=== PATIENT | female | born 1940 | race African-American/Black ===

== ENCOUNTER 2017-09-11 06:48 | Emergency (ER) | payer MEDICARE, MEDICAID ==
[2017-09-11] MEDS ORDERED: Tetracaine 0.5% OPTH.SOL 4 ML* 1 DROP BTL ONE (07:22)
[2017-09-11] MEDS ORDERED: Fluorescein Sod TOPICAL 0.6* 0.6 MG TEST OPHTHALMIC ONE (07:26)
--- NOTE | 2017-09-11 08:02 | ED ---
Jax Bean Gabriel, scribed for Ivan Phan MD on 09/11/17 at 0729 . Throat Pain/Nasal Congestion - HPI Summary HPI Summary: This patient is a 77 year old F presenting to [facility] accompanied by her son with a chief complaint of left eye pain that began yesterday but is worse this morning. The patient rates the pain 2/10 in severity. Patient reports MORALES and eye watering. Patient denies purulent discharge. The pt states the pain feels scratchy like there is a foreign body in her eye. She has a prosthetic right eye. Hx glaucoma. - History of Current Complaint Chief Complaint: EDEyeProblem Time Seen by Provider: 09/11/17 07:10 Hx Obtained From: Patient Onset/Duration: Lasting Days - 1, Still Present, Worse Since - this morning Severity: Mild Associated Signs And Symptoms: Positive: Negative - purulent discharge - Allergies/Home Medications Allergies/Adverse Reactions: Allergies Allergy/AdvReac Type Severity Reaction Status Date / Time contrast dye Allergy Itching Uncoded 09/11/17 06:54 PMH/Surg Hx/FS Hx/Imm Hx Endocrine/Hematology History: Reports: Hx Diabetes Cardiovascular History: Reports: Hx Hypercholesterolemia, Hx Hypertension Denies: Hx Myocardial Infarction Respiratory History: Reports: Hx Seasonal Allergies Denies: Hx Asthma, Hx Chronic Obstructive Pulmonary Disease (COPD) GI History: Reports: Hx Gastroesophageal Reflux Disease Sensory History: Reports: Hx Eye Prosthesis, Hx Glaucoma Opthamlomology History: Reports: Hx Eye Prosthesis, Hx Glaucoma - Surgical History Surgery Procedure, Year, and Place: right eye removal, Double mastectomy Infectious Disease History: No Infectious Disease History: Denies: Traveled Outside the [place] in Last 30 Days - Family History Known Family History: Positive: Hypertension, Diabetes Negative: Renal Disease, Respiratory Disease, Seizure Disorder - Social History Occupation: Unemployed Lives: Assisted Living Alcohol Use: None Substance Use Type: Reports: None Smoking Status (MU): Unknown if Ever Smoked Review of Systems Positive: Other - eye pain . Negative: Drainage Positive: Headache All Other Systems Reviewed And Are Negative: Yes Physical Exam - Summary Physical Exam Summary: VITAL SIGNS: Reviewed. GENERAL: Patient is an obese female who is seated in her wheelcahir. Patient is not in any acute respiratory distress. HEAD AND FACE: No signs of trauma. No ecchymosis, hematomas or skull depressions. No sinus tenderness. EYES: PERRLA, EOMI , No injected conjunctiva, no nystagmus. Fluorescein stain was negative. There was no foreign body or discharge EARS: Hearing grossly intact. Ear canals and tympanic membranes are within normal limits. MOUTH: Oropharynx within normal limits. NECK: Supple, trachea is midline, no adenopathy, no JVD, no carotid bruit, no c- spine tenderness, neck with full ROM. CHEST: Symmetric, no tenderness at palpation LUNGS: Clear to auscultation bilaterally. No wheezing or crackles. CVS: Regular rate and rhythm, S1 and S2 present, no murmurs or gallops appreciated. ABDOMEN: Soft, non-tender. No signs of distention. No rebound no guarding, and no masses palpated. Bowel sounds are normal. EXTREMITIES: FROM in all major joints, no edema, no cyanosis or clubbing. NEURO: Alert and oriented x 3. No acute neurological deficits. Speech is normal and follows commands. SKIN: Dry and warm Triage Information Reviewed: Yes Vital Signs On Initial Exam: Initial Vitals Temp Pulse Resp BP Pulse Ox 99.3 F 108 20 157/89 95 09/11/17 06:49 09/11/17 06:49 09/11/17 06:49 09/11/17 06:49 09/11/17 06:49 Vital Signs Reviewed: Yes Procedures - Eye Procedure Alcaine Drops Administered: No - tetracaine Eye FB Removal: other - no fb seen Eye Irrigated w/ Saline (ccs): 10 Diagnostics - Vital Signs Vital Signs Temp Pulse Resp BP Pulse Ox 09/11/17 06:49 99.3 F 108 20 157/89 95 - Laboratory Lab Statement: Any lab studies that have been ordered have been reviewed, and results considered in the medical decision making process. Re-Evaluation - Re-Evaluation First Eval Re-Evaluation Time: 07:25 Change: Improved Comment: The pt feels better after eye was irrigated. I discussed all discharge and findings with her. EENT Course/Dx - Course Assessment/Plan: This patient is a 77 year old F presenting to [facility] accompanied by her son with a chief complaint of left eye pain that began yesterday but is worse this morning. The patient rates the pain 2/10 in severity. Patient reports MORALES and eye watering. Patient denies purulent discharge. The pt states the pain feels scratchy like there is a foreign body in her eye. She has a prosthetic right eye. Hx glaucoma. In the ED course the patient was given Ful-Treasure and tetra Yanick. I examined the eye and no foreign body was seen. I answer all questions and concerns to patient and family satisfaction, there are no other complaints at this time. Patient will be discharged and follow up from Dr. Santos. The pt is hemodynamically stable, alert and oriented x3. The patient is agreeable with this plan. - Diagnoses Provider Diagnoses: Eye irritation Discharge - Sign-Out/Discharge Documenting (check all that apply): Discharge - Discharge Plan Condition: Stable Disposition: HOME Patient Education Materials: Blurred Vision (ED), Eye Pain (ED) Referrals: [facility] [Outside] Martin Santos MD [Medical Doctor] - Additional Instructions: Please follow up with an top lift cutter on Tuesday. RETURN TO THE EMERGENCY DEPARTMENT FOR CHANGING OR WORSENING SYMPTOMS. - Billing Disposition and Condition Condition: STABLE Disposition: HOME The documentation as recorded by the Jax bowman Gabriel accurately reflects the service I personally performed and the decisions made by me, Ivan Phan MD.
== END 2017-09-11 07:46 | disposition home or self-care (01) ==
LOC: ED 06:48
DX: H57.8 Other specified disorders of eye and adnexa (principal); H57.12 Ocular pain, left eye; R51 Headache; E11.9 Type 2 diabetes mellitus without complications; E78.00 Pure hypercholesterolemia, unspecified; I10 Essential (primary) hypertension; K21.9 Gastro-esophageal reflux disease without esophagitis; Z97.0 Presence of artificial eye; Z91.041 Radiographic dye allergy status
CPT/HCPCS: 99281; A9270-GY

== ENCOUNTER 2018-02-20 16:52 | Emergency (ER) | payer MEDICAID, MEDICARE ==
--- NOTE | 2018-02-20 17:20 | ED ---
Hypertension - HPI Summary HPI Summary: 78 y/o female BIBA to the ED for high BP (over 200 systolic, per pt). Sent from [facility]. 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 Pt is otherwise asymptomatic at this time. Known PMH of HTN, DM, arthritis, glaucoma letf eye, right eye prosthesis, bladder frequency. BP 176/91, HR 91 in the ED on patient visit. Pt states she just moved here from [place], lives in [facility]. - History of Current Complaint Chief Complaint: EDHypertension Stated Complaint: HIGH BLOOD PRESSURE Time Seen by Provider: 02/20/18 17:14 Hx Obtained From: Patient Onset/Duration: Still Present Aggravating Factor(s): Nothing Alleviating Factor(s): Nothing Associated Signs & Symptoms: Negative - Allergies/Home Medications Allergies/Adverse Reactions: Allergies Allergy/AdvReac Type Severity Reaction Status Date / Time contrast dye Allergy Itching Uncoded 09/11/17 06:54 PMH/Surg Hx/FS Hx/Imm Hx Previously Healthy: No Endocrine/Hematology History: Reports: Hx Diabetes Cardiovascular History: Reports: Hx Hypercholesterolemia, Hx Hypertension Denies: Hx Myocardial Infarction Respiratory History: Reports: Hx Seasonal Allergies Denies: Hx Asthma, Hx Chronic Obstructive Pulmonary Disease (COPD) GI History: Reports: Hx Gastroesophageal Reflux Disease Musculoskeletal History: Denies: Hx Osteoporosis Sensory History: Reports: Hx Eye Prosthesis, Hx Glaucoma Opthamlomology History: Reports: Hx Eye Prosthesis, Hx Glaucoma - Surgical History Surgery Procedure, Year, and Place: right eye removal, Double mastectomy. LT HEEL SPUR. HYSTERECTOMY. KIDNEY STONE REMOVAL Infectious Disease History: No Infectious Disease History: Denies: Traveled Outside the [place] in Last 30 Days - Family History Known Family History: Positive: Hypertension, Diabetes Negative: Renal Disease, Respiratory Disease, Seizure Disorder - Social History Alcohol Use: None Substance Use Type: Reports: None Smoking Status (MU): Unknown if Ever Smoked Review of Systems Negative: Fever, Chills Negative: Drainage Negative: Sore Throat Negative: Chest Pain Negative: Shortness Of Breath, Cough Negative: Abdominal Pain, Vomiting, Nausea Negative: dysuria, hematuria Negative: Myalgia, Edema Negative: Rash Neurological: Other - no dizziness All Other Systems Reviewed And Are Negative: Yes Physical Exam - Summary Physical Exam Summary: Constitutional: Well-developed, Well-nourished, Alert. (-) Distressed Skin: Warm, Dry HENT: Normocephalic; Atraumatic Eyes: Conjunctiva normal Neck: Musculoskeletal ROM normal neck. (-) JVD, (-) Stridor, (-) Tracheal deviation Cardio: Rhythm regular, rate normal, Heart sounds normal; Intact distal pulses; The pedal pulses are 2+ and symmetric. Radial pulses are 2+ and symmetric. (-) Murmur Pulmonary/Chest wall: Effort normal. (-) Respiratory distress, (-) Wheezes, (-) Rales Abd: Soft, (-) epigastric tenderness, (-) Distension, (-) Guarding, (-) Rebound Musculoskeletal: (-) Edema Lymph: (-) Cervical adenopathy Neuro: Alert, Oriented x3 Psych: Mood and affect Normal Triage Information Reviewed: Yes Vital Signs On Initial Exam: Initial Vitals Temp Pulse Resp BP Pulse Ox 97.4 F 91 15 176/91 98 02/20/18 17:04 02/20/18 17:04 02/20/18 17:04 02/20/18 17:04 02/20/18 17:04 Vital Signs Reviewed: Yes Diagnostics - Vital Signs Vital Signs Temp Pulse Resp BP Pulse Ox 02/20/18 17:04 97.4 F 91 15 176/91 98 - Laboratory Lab Statement: Any lab studies that have been ordered have been reviewed, and results considered in the medical decision making process. Hypertension Course/Dx - Course Assessment/Plan: Pt is currently asymptomatic in the ED. Pt has an appointment scheduled with Dr. Wood in 3 days. Pt will be d/c home, asked to keep her appointment. Recommended pt purchase an in-home BP monitor. Informed pt's sons of plan, family agrees. - Diagnoses Provider Diagnoses: Asymptomatic hypertension Discharge - Sign-Out/Discharge Documenting (check all that apply): Patient Departure - Discharge Plan Condition: Stable Disposition: HOME Patient Education Materials: Hypertension (ED) Referrals: Nito Hidalgo MD [Primary Care Provider] - 3 Days (Keep your appointment with Dr. Wood on , 02/23/18) Additional Instructions: RETURN TO THE ED FOR WORSENING SYMPTOMS - Attestation Statements Document Initiated by Scribe: Yes Documenting Scribe: Favio Alarcon Provider For Whom Scribe is Documenting (Include Credential): Stephen Carr MD Scribe Attestation: I, Edward Agnes, scribed for Stephen Carr MD on 02/20/18 at 1814.
[2018-02-20 17:52] VITALS: BP 158/99
== END 2018-02-20 17:49 | disposition home or self-care (01) ==
LOC: ED 16:52
DX: I10 Essential (primary) hypertension (principal)
CPT/HCPCS: 99282

== ENCOUNTER 2021-06-30 14:13 | Inpatient (IN) ==
[2021-06-30 15:21] LABS: ABS Basophils 0.1 10^3/ul (0-0.2); ABS Eosinophils 0.6 10^3/ul (0-0.6); ABS Lymphocytes 0.8 10^3/ul (1.0-4.8); ABS Monocytes 0.7 10^3/ul (0-0.8); ABS Neutrophils 3.9 10^3/ul (1.5-7.7); Eosinophil % 10.5 %; Hematocrit 39 % (35-47); Hemoglobin 12.5 g/dL (12.0-16.0); Mean Corpuscular HGB Conc 32 g/dL (31-36); Mean Corpuscular Hemoglobin 23 pg (27-31); Mean Corpuscular Volume 71 fL (80-97); Mean Platelet Volume 7.3 fL (7.4-10.4); Nucleated Red Blood Cells % 0.1; Platelet Count 226 10^3/uL (150-450); Red Blood Count 5.48 10^6 /uL (3.70-4.87); Red Cell Distribution Width 16 % (10-15)
[2021-06-30 15:31] LABS: Rapid COVID-19 Molecular Detected (Undetected)
[2021-06-30 15:36] LABS: Troponin I 0.02 ng/mL (<0.03)
[2021-06-30 15:38] LABS: Influenza A Molecular Negative (Negative); Influenza B Molecular Negative (Negative)
[2021-06-30 15:49] LABS: Albumin 3.8 g/dL (3.2-5.2); Calcium 9.3 mg/dL (8.6-10.3); Globulin 3.7 g/dL (2-4); Potassium 3.8 mmol/L (3.5-5.0); Total Bilirubin 0.3 mg/dL (0.2-1.0); Total Protein 7.5 g/dL (6.4-8.9); eGFR CKD-EPI 36.8 (>60)
[2021-06-30] MEDS ORDERED: Dexamethasone IV 4 MG/ML VIAL 1 ml VIAL IV SLOW PU ONE (16:28)
[2021-06-30] MEDS ORDERED: Dextrose 50% Syringe 50 ml 25 GM/50 ML SYRINGE IV PUSH PRN (19:42)
[2021-06-30] MEDS ORDERED: Remdesivir 100 mg Vial 200 MG in NS 0.9% 250 ml 210 ML IV ONE (19:43)
[2021-06-30] MEDS: Enoxaparin 40 MG/0.4 ML SYR SUBCUT SCH (22:20)
[2021-07-01] MEDS: CMCS: Ranolazine 500 mg TAB ER (NF) PO SCH ×3 (00:16→20:45)
[2021-07-01] MEDS ORDERED: Diclofenac Sod EC 25 mg TAB PO PRN (01:04)
[2021-07-01 06:45] LABS: INR 1.12 (0.86-1.15)
[2021-07-01 06:59] LABS: Albumin 3.8 g/dL (3.2-5.2); Albumin/Globulin Ratio 0.9 (1-3); Calcium 9.4 mg/dL (8.6-10.3); Globulin 4.1 g/dL (2-4); Potassium 4.1 mmol/L (3.5-5.0); Total Bilirubin 0.3 mg/dL (0.2-1.0); Total Protein 7.9 g/dL (6.4-8.9); eGFR CKD-EPI 46.4 (>60)
[2021-07-01 07:00] LABS: Troponin I 0.01 ng/mL (<0.03)
[2021-07-01] MEDS: CMCS: Dorzolamide/Timolol OPTH (NF) 10 ML BOT LEFT EYE SCH ×2 (08:54→20:46)
[2021-07-01] MEDS: Aspirin EC 81 mg TAB.EC (enteric coated) PO SCH (08:56)
[2021-07-01] MEDS: LOTEPREDNOL 0.5% LEFT EYE SCH ×4 (08:58→21:00)
[2021-07-01] MEDS: BRIMONIDINE P 0.1% LEFT EYE SCH ×3 (08:58→20:46)
[2021-07-01] MEDS ORDERED: Lisinopril/HCTZ 20/12.5 TB(NF) PO SCH (09:00)
[2021-07-01] MEDS: Enoxaparin 40 MG/0.4 ML SYR SUBCUT SCH (20:45)
[2021-07-01] MEDS ORDERED: Remdesivir 100 mg Vial 100 MG in NS 0.9% 250 ml 230 ML IV SCH (21:00)
[2021-07-01] MEDS ORDERED: Latanoprost 0.005% 2.5 ml BTL LEFT EYE SCH (21:00)
[2021-07-02 07:26] LABS: INR 1.12 (0.86-1.15)
[2021-07-02 07:31] LABS: Albumin 3.6 g/dL (3.2-5.2); Albumin/Globulin Ratio 0.9 (1-3); Calcium 9.3 mg/dL (8.6-10.3); Globulin 3.9 g/dL (2-4); Potassium 4.1 mmol/L (3.5-5.0); Total Bilirubin 0.3 mg/dL (0.2-1.0); Total Protein 7.5 g/dL (6.4-8.9); eGFR CKD-EPI 51.6 (>60)
[2021-07-02 07:48] LABS: ABS Lymphocytes 0.6 10^3/ul (1.0-4.8); ABS Monocytes 0.2 10^3/ul (0-0.8); ABS Neutrophils 5.5 10^3/ul (1.5-7.7); Hematocrit 37 % (35-47); Hemoglobin 11.9 g/dL (12.0-16.0); Lymphocyte % 8.8 %; Mean Corpuscular HGB Conc 32 g/dL (31-36); Mean Corpuscular Hemoglobin 23 pg (27-31); Mean Corpuscular Volume 71 fL (80-97); Mean Platelet Volume 7.9 fL (7.4-10.4); Nucleated Red Blood Cells % 0.1; Platelet Count 250 10^3/uL (150-450); Red Blood Count 5.22 10^6 /uL (3.70-4.87); Red Cell Distribution Width 16 % (10-15); White Blood Count 6.3 10^3/uL (3.5-10.8)
[2021-07-02] MEDS: LOTEPREDNOL 0.5% LEFT EYE SCH ×2 (08:20→14:48)
[2021-07-02] MEDS: BRIMONIDINE P 0.1% LEFT EYE SCH ×2 (08:20→14:49)
[2021-07-02] MEDS: CMCS: Ranolazine 500 mg TAB ER (NF) PO SCH (08:39)
[2021-07-02] MEDS: Aspirin EC 81 mg TAB.EC (enteric coated) PO SCH (08:39)
[2021-07-02] MEDS: CMCS: Dorzolamide/Timolol OPTH (NF) 10 ML BOT LEFT EYE SCH (08:40)
[2021-07-02 11:56] VITALS: BP 107/41
== END 2021-07-02 18:10 | disposition home or self-care (01) | DRG 178 ==
LOC: ED 14:13 → EDHOLD 19:20 → MED 07-01 00:49
PROVIDERS: ADMIT Family Medicine; ATTEND Family Medicine

== ENCOUNTER 2022-01-04 13:58 | Inpatient (IN) ==
[2022-01-04 15:48] LABS: ABS Eosinophils 0.1 10^3/ul (0-0.6); ABS Lymphocytes 0.6 10^3/ul (1.0-4.8); ABS Monocytes 0.8 10^3/ul (0-0.8); ABS Neutrophils 8.7 10^3/ul (1.5-7.7); Eosinophil % 0.5 %; Hematocrit 28 % (35-47); Hemoglobin 8.7 g/dL (12.0-16.0); Lymphocyte % 6.3 %; Mean Corpuscular HGB Conc 31 g/dL (31-36); Mean Corpuscular Hemoglobin 21 pg (27-31); Mean Corpuscular Volume 69 fL (80-97); Mean Platelet Volume 8.5 fL (7.4-10.4); Nucleated Red Blood Cells % 0.3; Platelet Count 316 10^3/uL (150-450); Red Blood Count 4.12 10^6 /uL (3.70-4.87); Red Cell Distribution Width 18 % (10-15); White Blood Count 10.2 10^3/uL (3.5-10.8)
[2022-01-04 16:37] LABS: Anion Gap 13 mmol/L (2-11); Blood Urea Nitrogen 80 mg/dL (6-24); CO2 Carbon Dioxide 23 mmol/L (22-32); Calcium 8.9 mg/dL (8.6-10.3); Chloride 96 mmol/L (101-111); Glucose 162 mg/dL (70-100); Sodium 132 mmol/L (135-145); Total Protein 6.6 g/dL (6.4-8.9); eGFR CKD-EPI 9.3 (>60)
[2022-01-04 16:38] LABS: ALT 12 U/L (7-52); Albumin 2.8 g/dL (3.2-5.2); Albumin/Globulin Ratio 0.7 (1-3); Alkaline Phosphatase 53 U/L (35-149); Globulin 3.8 g/dL (2-4)
[2022-01-04] MEDS ORDERED: Lactated Ringers 1000 ml BAG 1,000 ML IV ONE (17:20)
[2022-01-04 18:22] LABS: Potassium Redraw 4.3 mmol/L (3.5-5.0)
[2022-01-04] MEDS ORDERED: Lactated Ringers 500 ml BAG 500 ML IV ONE (20:59)
[2022-01-04] MEDS ORDERED: Lactated Ringers 1000 ml BAG 1,000 ML IV SCH (22:25)
[2022-01-04 22:29] LABS: C Reactive Protein 187.98 mg/L (<8.01)
[2022-01-04 22:50] LABS: Urine Appearance Slightly Cloudy; Urine Color Amber; Urine Ketones Trace (Negative); Urine Urobilinogen 1.0 (Negative) (Negative)
[2022-01-04 22:51] LABS: Urine Bilirubin 1+ (Small) (Negative); Urine Blood 3+ (Large) (Negative); Urine Glucose Negative (Negative); Urine Nitrite Negative (Negative); Urine Protein 1+ (30 mg/dL) (Negative)
[2022-01-04 22:58] LABS: Urine Bacteria Absent (Absent); Urine Chloride Concentration < 22 mmol/L; Urine Potassium Concentration 68.9 mmol/L; Urine Red Blood Cell 3+(>10/hpf) (Absent); Urine Sodium Concentration 20 mmol/L; Urine Squamous Epithelial Cell Present (Absent); Urine White Blood Cell 2+(11-20/hpf) (Absent)
[2022-01-04] MEDS: CMCS:Dorzolamide/Timolol OPTH (NF) 10 ML BOT LEFT EYE SCH (23:17)
[2022-01-04] MEDS: LOTEPREDNOL ETABONATE 0.5% LEFT EYE SCH (23:27)
[2022-01-05] MEDS ORDERED: Acetaminophen IV 1 GM/100ML 100 ML IV PRN (01:38)
[2022-01-05 04:43] LABS: ABS Eosinophils 0.3 10^3/ul (0-0.6); ABS Lymphocytes 0.6 10^3/ul (1.0-4.8); ABS Monocytes 0.8 10^3/ul (0-0.8); ABS Neutrophils 5.7 10^3/ul (1.5-7.7); Eosinophil % 3.6 %; Hematocrit 25 % (35-47); Hemoglobin 7.9 g/dL (12.0-16.0); Lymphocyte % 7.5 %; Mean Corpuscular HGB Conc 32 g/dL (31-36); Mean Corpuscular Hemoglobin 22 pg (27-31); Mean Corpuscular Volume 69 fL (80-97); Mean Platelet Volume 7.6 fL (7.4-10.4); Nucleated Red Blood Cells % 0.4; Platelet Count 263 10^3/uL (150-450); Red Blood Count 3.67 10^6 /uL (3.70-4.87); Red Cell Distribution Width 18 % (10-15); White Blood Count 7.4 10^3/uL (3.5-10.8)
[2022-01-05 04:57] LABS: Albumin 2.6 g/dL (3.2-5.2); Albumin/Globulin Ratio 0.8 (1-3); Calcium 8.5 mg/dL (8.6-10.3); Globulin 3.4 g/dL (2-4); Magnesium 1.8 mg/dL (1.9-2.7); Potassium 4.3 mmol/L (3.5-5.0); Total Bilirubin 0.4 mg/dL (0.2-1.0)
[2022-01-05] MEDS ORDERED: Magnesium Sulfate IV 1GM/100ML 1 GM/100 ML BAG IV ONE (05:50)
[2022-01-05] MEDS: Aspirin EC 81 mg TAB.EC (enteric coated) PO SCH (07:47)
[2022-01-05] MEDS: LOTEPREDNOL ETABONATE 0.5% LEFT EYE SCH ×4 (07:48→21:36)
[2022-01-05] MEDS: Metoprolol Succinate XL 200 mg TAB PO SCH (07:48)
[2022-01-05] MEDS: CMCS:Dorzolamide/Timolol OPTH (NF) 10 ML BOT LEFT EYE SCH ×2 (08:54→21:35)
[2022-01-05] MEDS: Nystatin TOP POWDER 15 GM BTL TOPICAL SCH ×3 (08:55→21:36)
[2022-01-05] MEDS ORDERED: Simvastatin 10 mg TAB (NF) PO SCH (09:00)
[2022-01-05] MEDS ORDERED: Sodium Phosphate ADULT ENEMA 133 ML BTL PR SCH (09:00)
[2022-01-05] MEDS: Lactated Ringers 1000 ml BAG 1,000 ML IV SCH ×2 (10:56→19:50)
[2022-01-05] MEDS: Latanoprost 0.005% 2.5 ml BTL LEFT EYE SCH ×2 (21:47→21:48)
[2022-01-06] MEDS: Lactated Ringers 1000 ml BAG 1,000 ML IV SCH (02:46)
[2022-01-06 06:41] LABS: Hematocrit 24 % (35-47); Hemoglobin 7.6 g/dL (12.0-16.0); Mean Corpuscular HGB Conc 32 g/dL (31-36); Mean Corpuscular Hemoglobin 22 pg (27-31); Mean Corpuscular Volume 68 fL (80-97); Mean Platelet Volume 7.5 fL (7.4-10.4); Nucleated Red Blood Cells % 0.5; Platelet Count 286 10^3/uL (150-450); Red Blood Count 3.46 10^6 /uL (3.70-4.87); Red Cell Distribution Width 18 % (10-15); White Blood Count 6.1 10^3/uL (3.5-10.8)
[2022-01-06 06:47] LABS: ABS Eosinophils 0.2 10^3/ul (0-0.6); ABS Lymphocytes 0.5 10^3/ul (1.0-4.8); ABS Monocytes 0.3 10^3/ul (0-0.8); ABS Neutrophils 2.9 10^3/ul (1.5-7.7); Eosinophil % 4.8 %; Lymphocyte % 12.2 %
[2022-01-06 07:04] LABS: Albumin 2.5 g/dL (3.2-5.2); Albumin/Globulin Ratio 0.8 (1-3); Calcium 8.7 mg/dL (8.6-10.3); Globulin 3.2 g/dL (2-4); Magnesium 1.9 mg/dL (1.9-2.7); Potassium 3.8 mmol/L (3.5-5.0); TSH Ultra Thyroid Stim Horm 0.83 mcIU/mL (0.34-5.60); Total Bilirubin 0.3 mg/dL (0.2-1.0); Total Protein 5.7 g/dL (6.4-8.9); eGFR CKD-EPI 19.4 (>60)
[2022-01-06] MEDS: Aspirin EC 81 mg TAB.EC (enteric coated) PO SCH (08:48)
[2022-01-06] MEDS: Metoprolol Succinate XL 200 mg TAB PO SCH (08:48)
[2022-01-06] MEDS: Nystatin TOP POWDER 15 GM BTL TOPICAL SCH ×3 (08:48→21:14)
[2022-01-06] MEDS: CMCS:Dorzolamide/Timolol OPTH (NF) 10 ML BOT LEFT EYE SCH ×2 (08:49→21:08)
[2022-01-06] MEDS: LOTEPREDNOL ETABONATE 0.5% LEFT EYE SCH ×4 (08:49→21:14)
[2022-01-06] MEDS ORDERED: Cyanocobalamin INJ 1,000 MCG/ML VIAL 1 ML VIAL IM ONE (18:49)
[2022-01-06] MEDS: Latanoprost 0.005% 2.5 ml BTL LEFT EYE SCH (21:09)
[2022-01-07 05:47] LABS: ABS Eosinophils 0.2 10^3/ul (0-0.6); ABS Lymphocytes 0.5 10^3/ul (1.0-4.8); ABS Monocytes 0.6 10^3/ul (0-0.8); ABS Neutrophils 3.6 10^3/ul (1.5-7.7); Eosinophil % 3.9 %; Hematocrit 24 % (35-47); Hemoglobin 7.7 g/dL (12.0-16.0); Lymphocyte % 10.4 %; Mean Corpuscular HGB Conc 32 g/dL (31-36); Mean Corpuscular Hemoglobin 22 pg (27-31); Mean Corpuscular Volume 69 fL (80-97); Mean Platelet Volume 7.5 fL (7.4-10.4); Nucleated Red Blood Cells % 0.2; Platelet Count 292 10^3/uL (150-450); Red Blood Count 3.55 10^6 /uL (3.70-4.87); Red Cell Distribution Width 19 % (10-15)
[2022-01-07 06:08] LABS: Magnesium 1.8 mg/dL (1.9-2.7); Potassium 3.8 mmol/L (3.5-5.0)
[2022-01-07 06:14] LABS: eGFR CKD-EPI 36.3 (>60)
[2022-01-07] MEDS ORDERED: Magnesium Sulfate IV 1GM/100ML 1 GM/100 ML BAG IV ONE (06:38)
[2022-01-07] MEDS ORDERED: Dextrose 50% Syringe 50 ml 25 GM/50 ML SYRINGE IV PUSH PRN (09:20)
[2022-01-07] MEDS: Aspirin EC 81 mg TAB.EC (enteric coated) PO SCH (10:12)
[2022-01-07] MEDS: Metoprolol Succinate XL 200 mg TAB PO SCH (10:13)
[2022-01-07] MEDS: Nystatin TOP POWDER 15 GM BTL TOPICAL SCH ×2 (10:15→17:31)
[2022-01-07] MEDS: CMCS:Dorzolamide/Timolol OPTH (NF) 10 ML BOT LEFT EYE SCH ×2 (12:22→21:52)
[2022-01-07] MEDS: LOTEPREDNOL ETABONATE 0.5% LEFT EYE SCH ×3 (12:23→21:51)
[2022-01-07 13:15] LABS: C Reactive Protein 179.56 mg/L (<8.01)
[2022-01-07] MEDS: D5W 1/2 NS 1000 ml BAG 1,000 ML IV SCH (18:26)
[2022-01-07] MEDS: Latanoprost 0.005% 2.5 ml BTL LEFT EYE SCH (21:53)
[2022-01-08] MEDS: D5W 1/2 NS 1000 ml BAG 1,000 ML IV SCH ×2 (04:55→15:31)
[2022-01-08 06:13] LABS: Hematocrit 27 % (35-47); Hemoglobin 8.5 g/dL (12.0-16.0); Mean Corpuscular HGB Conc 31 g/dL (31-36); Mean Corpuscular Hemoglobin 22 pg (27-31); Mean Corpuscular Volume 70 fL (80-97); Mean Platelet Volume 8.5 fL (7.4-10.4); Platelet Count 272 10^3/uL (150-450); Red Blood Count 3.87 10^6 /uL (3.70-4.87); Red Cell Distribution Width 20 % (10-15); White Blood Count 4.2 10^3/uL (3.5-10.8)
[2022-01-08 06:51] LABS: Calcium 9.1 mg/dL (8.6-10.3); Magnesium 1.8 mg/dL (1.9-2.7); Potassium 3.6 mmol/L (3.5-5.0); eGFR CKD-EPI 58.3 (>60)
[2022-01-08] MEDS ORDERED: Magnesium Sulfate 2 gm BAG 2 GM/50 ML BAG IVPB ONE (07:04)
[2022-01-08] MEDS: Nystatin TOP POWDER 15 GM BTL TOPICAL SCH (08:08)
[2022-01-08] MEDS: LOTEPREDNOL ETABONATE 0.5% LEFT EYE SCH (08:08)
[2022-01-08] MEDS: Metoprolol Succinate XL 200 mg TAB PO SCH (08:52)
[2022-01-08] MEDS: Aspirin EC 81 mg TAB.EC (enteric coated) PO SCH (08:52)
[2022-01-08] MEDS: CMCS:Dorzolamide/Timolol OPTH (NF) 10 ML BOT LEFT EYE SCH ×2 (08:53→20:32)
[2022-01-08] MEDS ORDERED: methylPREDNISolone SOD SUCC 40 mg/ml 1 ml VIAL IV SCH (15:00)
[2022-01-08] MEDS: Latanoprost 0.005% 2.5 ml BTL LEFT EYE SCH (20:32)
[2022-01-08] MEDS ORDERED: methylPREDNISolone SOD SUCC 40 mg/ml 1 ml VIAL IV ONE (21:00)
[2022-01-09] MEDS: D5W 1/2 NS 1000 ml BAG 1,000 ML IV SCH ×2 (01:07→12:07)
[2022-01-09 06:47] LABS: Hematocrit 30 % (35-47); Hemoglobin 9.5 g/dL (12.0-16.0); Mean Corpuscular HGB Conc 32 g/dL (31-36); Mean Corpuscular Hemoglobin 22 pg (27-31); Mean Corpuscular Volume 70 fL (80-97); Mean Platelet Volume 8.6 fL (7.4-10.4); Platelet Count 316 10^3/uL (150-450); Red Cell Distribution Width 20 % (10-15); White Blood Count 5.5 10^3/uL (3.5-10.8)
[2022-01-09 06:56] LABS: Calcium 9.2 mg/dL (8.6-10.3); Magnesium 1.8 mg/dL (1.9-2.7); eGFR CKD-EPI 68.4 (>60)
[2022-01-09] MEDS ORDERED: Magnesium Sulfate IV 1GM/100ML 1 GM/100 ML BAG IV ONE (07:30)
[2022-01-09 07:38] LABS: ABS Lymphocytes 0.4 10^3/ul (1.0-4.8); Lymphocyte % 7.6 %; Nucleated Red Blood Cells % 0.3
[2022-01-09] MEDS: Aspirin EC 81 mg TAB.EC (enteric coated) PO SCH (07:57)
[2022-01-09] MEDS: Metoprolol Succinate XL 200 mg TAB PO SCH (07:58)
[2022-01-09] MEDS: CMCS:Dorzolamide/Timolol OPTH (NF) 10 ML BOT LEFT EYE SCH ×2 (07:58→19:50)
[2022-01-09] MEDS ORDERED: methylPREDNISolone SOD SUCC 40 mg/ml 1 ml VIAL IV ONE (08:00)
[2022-01-09] MEDS ORDERED: methylPREDNISolone SOD SUCC 40 mg/ml 1 ml VIAL IV SCH (09:00)
[2022-01-09] MEDS ORDERED: Iodixanol (CONTRAST) 320 MG/ML 100 ML SDV IV ONE (09:21)
[2022-01-09 12:38] LABS: Albumin 2.9 g/dL (3.2-5.2); Albumin/Globulin Ratio 0.8 (1-3); Globulin 3.7 g/dL (2-4); Total Bilirubin 0.3 mg/dL (0.2-1.0); Total Protein 6.6 g/dL (6.4-8.9)
[2022-01-09] MEDS ORDERED: Piperacillin/Tazobac ADVAN 3.375 GM in NS 0.9% 100 ml BAG 100 ML IV ONE (14:29)
[2022-01-09] MEDS ORDERED: Zosyn per Pharmacy NOTE FOLLOW UP SCH (15:00)
[2022-01-09] MEDS: ZOSYN 3.375 GM Q8H per EXTENDED INFUSION IV SCH (19:47)
[2022-01-09] MEDS: Latanoprost 0.005% 2.5 ml BTL LEFT EYE SCH (19:50)
[2022-01-10] MEDS: D5W 1/2 NS 1000 ml BAG 1,000 ML IV SCH ×2 (00:52→11:56)
[2022-01-10] MEDS: ZOSYN 3.375 GM Q8H per EXTENDED INFUSION IV SCH ×3 (04:03→21:51)
[2022-01-10 07:07] LABS: Albumin 2.7 g/dL (3.2-5.2); CO2 Carbon Dioxide 18 mmol/L (22-32); Calcium 8.8 mg/dL (8.6-10.3); Chloride 106 mmol/L (101-111); Magnesium 1.8 mg/dL (1.9-2.7); Sodium 136 mmol/L (135-145)
[2022-01-10 07:08] LABS: ABS Lymphocytes 0.5 10^3/ul (1.0-4.8); ABS Monocytes 0.5 10^3/ul (0-0.8); ABS Neutrophils 7.6 10^3/ul (1.5-7.7); ABS Nucleated RBC 0.1 10^3/ul; Hematocrit 32 % (35-47); Hemoglobin 9.8 g/dL (12.0-16.0); Lymphocyte % 5.7 %; Mean Corpuscular HGB Conc 31 g/dL (31-36); Mean Corpuscular Hemoglobin 22 pg (27-31); Mean Corpuscular Volume 72 fL (80-97); Mean Platelet Volume 8.3 fL (7.4-10.4); Nucleated Red Blood Cells % 0.5; Platelet Count 262 10^3/uL (150-450); Red Blood Count 4.47 10^6 /uL (3.70-4.87); Red Cell Distribution Width 20 % (10-15); White Blood Count 8.6 10^3/uL (3.5-10.8)
[2022-01-10 07:09] LABS: Anion Gap 12 mmol/L (2-11)
[2022-01-10 07:13] LABS: ALT 12 U/L (7-52); Albumin/Globulin Ratio 0.8 (1-3); Alkaline Phosphatase 52 U/L (35-149); Blood Urea Nitrogen 15 mg/dL (6-24); Globulin 3.5 g/dL (2-4); Glucose 201 mg/dL (70-100); Total Protein 6.2 g/dL (6.4-8.9); eGFR CKD-EPI 58.3 (>60)
[2022-01-10] MEDS ORDERED: Magnesium Sulfate 2 gm BAG 2 GM/50 ML BAG IVPB ONE (08:09)
[2022-01-10 08:12] LABS: Hypochromasia 2+
[2022-01-10 08:13] LABS: Microcytosis 2+; Polychromasia 1+; Target Cells 2+
[2022-01-10] MEDS: Aspirin EC 81 mg TAB.EC (enteric coated) PO SCH (08:50)
[2022-01-10] MEDS: Metoprolol Succinate XL 200 mg TAB PO SCH (08:50)
[2022-01-10] MEDS: CMCS:Dorzolamide/Timolol OPTH (NF) 10 ML BOT LEFT EYE SCH ×2 (08:50→23:02)
[2022-01-10 09:12] LABS: Potassium Redraw 3.7 mmol/L (3.5-5.0)
[2022-01-10] MEDS: Latanoprost 0.005% 2.5 ml BTL LEFT EYE SCH (23:02)
[2022-01-11] MEDS: ZOSYN 3.375 GM Q8H per EXTENDED INFUSION IV SCH ×3 (03:54→20:56)
[2022-01-11 05:29] LABS: Venous Bicarbonate HCO3 28.7 mmol/L (24-28)
[2022-01-11 05:49] LABS: INR 1.41 (0.89-1.11)
[2022-01-11 06:00] LABS: Calcium 8.5 mg/dL (8.6-10.3); Magnesium 1.9 mg/dL (1.9-2.7); Potassium 3.6 mmol/L (3.5-5.0); eGFR CKD-EPI 65.6 (>60)
[2022-01-11 06:03] LABS: Hematocrit 31 % (35-47); Hemoglobin 9.4 g/dL (12.0-16.0); Mean Corpuscular HGB Conc 31 g/dL (31-36); Mean Corpuscular Hemoglobin 22 pg (27-31); Mean Corpuscular Volume 70 fL (80-97); Mean Platelet Volume 7.2 fL (7.4-10.4); Platelet Count 292 10^3/uL (150-450); Red Blood Count 4.35 10^6 /uL (3.70-4.87); Red Cell Distribution Width 20 % (10-15); White Blood Count 8.8 10^3/uL (3.5-10.8)
[2022-01-11 06:24] LABS: ABS Basophils 0.1 10^3/ul (0-0.2); ABS Eosinophils 0.1 10^3/ul (0-0.6); ABS Lymphocytes 1.2 10^3/ul (1.0-4.8); ABS Monocytes 0.6 10^3/ul (0-0.8); ABS Neutrophils 6.9 10^3/ul (1.5-7.7); ABS Nucleated RBC 0.1 10^3/ul; Lymphocyte % 13.3 %; Nucleated Red Blood Cells % 0.8
[2022-01-11] MEDS: Aspirin EC 81 mg TAB.EC (enteric coated) PO SCH (08:10)
[2022-01-11] MEDS: CMCS:Dorzolamide/Timolol OPTH (NF) 10 ML BOT LEFT EYE SCH ×2 (08:10→20:56)
[2022-01-11] MEDS: Metoprolol Succinate XL 200 mg TAB PO SCH (08:11)
[2022-01-11] MEDS ORDERED: Zinc Oxide 16% PASTE (Butt Paste) 30 gm TUBE TOPICAL PRN (10:49)
[2022-01-11] MEDS ORDERED: fentaNYL 100 mcg/2 ml 50 MCG/ML VIAL ONE (16:18)
[2022-01-11] MEDS: Latanoprost 0.005% 2.5 ml BTL LEFT EYE SCH (21:30)
[2022-01-12] MEDS: ZOSYN 3.375 GM Q8H per EXTENDED INFUSION IV SCH ×3 (05:05→20:17)
[2022-01-12 05:25] LABS: Hematocrit 32 % (35-47); Hemoglobin 10.1 g/dL (12.0-16.0); Mean Corpuscular HGB Conc 32 g/dL (31-36); Mean Corpuscular Hemoglobin 23 pg (27-31); Mean Corpuscular Volume 71 fL (80-97); Platelet Count 249 10^3/uL (150-450); Red Blood Count 4.48 10^6 /uL (3.70-4.87); Red Cell Distribution Width 20 % (10-15); White Blood Count 8.5 10^3/uL (3.5-10.8)
[2022-01-12 05:43] LABS: Albumin 2.6 g/dL (3.2-5.2); Albumin/Globulin Ratio 0.9 (1-3); Calcium 8.4 mg/dL (8.6-10.3); Potassium 3.2 mmol/L (3.5-5.0); Total Bilirubin 0.5 mg/dL (0.2-1.0); Total Protein 5.6 g/dL (6.4-8.9); eGFR CKD-EPI 71.4 (>60)
[2022-01-12 05:50] LABS: ABS Eosinophils 0.1 10^3/ul (0-0.6); ABS Lymphocytes 0.5 10^3/ul (1.0-4.8); ABS Monocytes 0.6 10^3/ul (0-0.8); ABS Neutrophils 7.3 10^3/ul (1.5-7.7); Eosinophil % 1.7 %; Lymphocyte % 5.5 %; Nucleated Red Blood Cells % 0.4
[2022-01-12] MEDS ORDERED: Potassium Chlor 20 meq TAB.ER PO ONE ×3 (07:12→14:00)
[2022-01-12] MEDS: Metoprolol Succinate XL 200 mg TAB PO SCH (11:13)
[2022-01-12] MEDS: Aspirin EC 81 mg TAB.EC (enteric coated) PO SCH (11:15)
[2022-01-12] MEDS: CMCS:Dorzolamide/Timolol OPTH (NF) 10 ML BOT LEFT EYE SCH ×2 (11:16→20:20)
[2022-01-12 13:05] LABS: Rapid COVID-19 Molecular Undetected (Undetected)
[2022-01-12] MEDS: Latanoprost 0.005% 2.5 ml BTL LEFT EYE SCH (20:21)
[2022-01-13] MEDS: ZOSYN 3.375 GM Q8H per EXTENDED INFUSION IV SCH ×3 (04:08→19:33)
[2022-01-13 06:47] LABS: ABS Eosinophils 0.2 10^3/ul (0-0.6); ABS Lymphocytes 0.7 10^3/ul (1.0-4.8); ABS Monocytes 0.6 10^3/ul (0-0.8); ABS Neutrophils 6.3 10^3/ul (1.5-7.7); Eosinophil % 2.5 %; Hematocrit 30 % (35-47); Hemoglobin 9.9 g/dL (12.0-16.0); Lymphocyte % 9.4 %; Mean Corpuscular HGB Conc 33 g/dL (31-36); Mean Corpuscular Hemoglobin 23 pg (27-31); Mean Corpuscular Volume 71 fL (80-97); Mean Platelet Volume 8.3 fL (7.4-10.4); Nucleated Red Blood Cells % 0.4; Platelet Count 227 10^3/uL (150-450); Red Blood Count 4.29 10^6 /uL (3.70-4.87); Red Cell Distribution Width 20 % (10-15); White Blood Count 7.8 10^3/uL (3.5-10.8)
[2022-01-13 07:02] LABS: Albumin 2.6 g/dL (3.2-5.2); Albumin/Globulin Ratio 0.9 (1-3); Calcium 8.4 mg/dL (8.6-10.3); Globulin 2.9 g/dL (2-4); Potassium 3.6 mmol/L (3.5-5.0); Total Bilirubin 0.4 mg/dL (0.2-1.0); Total Protein 5.5 g/dL (6.4-8.9); eGFR CKD-EPI 74.6 (>60)
[2022-01-13] MEDS: Metoprolol Succinate XL 200 mg TAB PO SCH (08:18)
[2022-01-13] MEDS: Aspirin EC 81 mg TAB.EC (enteric coated) PO SCH (08:19)
[2022-01-13] MEDS: CMCS:Dorzolamide/Timolol OPTH (NF) 10 ML BOT LEFT EYE SCH ×2 (08:21→19:54)
[2022-01-13] MEDS: Latanoprost 0.005% 2.5 ml BTL LEFT EYE SCH (19:55)
[2022-01-14] MEDS: ZOSYN 3.375 GM Q8H per EXTENDED INFUSION IV SCH ×3 (03:06→21:22)
[2022-01-14 05:54] LABS: ABS Basophils 0.1 10^3/ul (0-0.2); ABS Eosinophils 0.4 10^3/ul (0-0.6); ABS Lymphocytes 0.6 10^3/ul (1.0-4.8); ABS Monocytes 0.6 10^3/ul (0-0.8); ABS Neutrophils 6.6 10^3/ul (1.5-7.7); Eosinophil % 4.7 %; Hematocrit 29 % (35-47); Hemoglobin 9.5 g/dL (12.0-16.0); Lymphocyte % 7.7 %; Mean Corpuscular HGB Conc 32 g/dL (31-36); Mean Corpuscular Hemoglobin 23 pg (27-31); Mean Corpuscular Volume 71 fL (80-97); Mean Platelet Volume 8.4 fL (7.4-10.4); Nucleated Red Blood Cells % 0.5; Platelet Count 215 10^3/uL (150-450); Red Blood Count 4.15 10^6 /uL (3.70-4.87); Red Cell Distribution Width 20 % (10-15); White Blood Count 8.2 10^3/uL (3.5-10.8)
[2022-01-14 06:25] LABS: Albumin 2.6 g/dL (3.2-5.2); Albumin/Globulin Ratio 0.9 (1-3); Calcium 8.3 mg/dL (8.6-10.3); Potassium 3.8 mmol/L (3.5-5.0); Total Bilirubin 0.4 mg/dL (0.2-1.0); Total Protein 5.6 g/dL (6.4-8.9); eGFR CKD-EPI 74.6 (>60)
[2022-01-14] MEDS: Metoprolol Succinate XL 200 mg TAB PO SCH (08:58)
[2022-01-14] MEDS: Aspirin EC 81 mg TAB.EC (enteric coated) PO SCH (08:59)
[2022-01-14] MEDS: CMCS:Dorzolamide/Timolol OPTH (NF) 10 ML BOT LEFT EYE SCH ×2 (09:00→21:28)
[2022-01-14] MEDS ORDERED: Lisinopril/HCTZ 20/12.5 TB(NF) PO SCH (09:00)
[2022-01-14] MEDS: Latanoprost 0.005% 2.5 ml BTL LEFT EYE SCH (21:29)
[2022-01-15] MEDS ORDERED: hydrALAZINE 20 mg/ml 1 ML Vial IV IV SLOW PU ONE (02:41)
[2022-01-15] MEDS: ZOSYN 3.375 GM Q8H per EXTENDED INFUSION IV SCH (03:41)
[2022-01-15 06:17] LABS: Hematocrit 32 % (35-47); Hemoglobin 9.7 g/dL (12.0-16.0); Mean Corpuscular HGB Conc 31 g/dL (31-36); Mean Corpuscular Hemoglobin 22 pg (27-31); Mean Corpuscular Volume 70 fL (80-97); Mean Platelet Volume 8.5 fL (7.4-10.4); Nucleated Red Blood Cells % 0.3; Platelet Count 235 10^3/uL (150-450); Red Blood Count 4.52 10^6 /uL (3.70-4.87); Red Cell Distribution Width 21 % (10-15); White Blood Count 7.8 10^3/uL (3.5-10.8)
[2022-01-15 06:24] LABS: Albumin 2.8 g/dL (3.2-5.2); Albumin/Globulin Ratio 0.9 (1-3); Calcium 8.8 mg/dL (8.6-10.3); Globulin 3.1 g/dL (2-4); Potassium 3.6 mmol/L (3.5-5.0); Total Bilirubin 0.4 mg/dL (0.2-1.0); Total Protein 5.9 g/dL (6.4-8.9)
[2022-01-15] MEDS: Metoprolol Succinate XL 200 mg TAB PO SCH (07:50)
[2022-01-15] MEDS: Aspirin EC 81 mg TAB.EC (enteric coated) PO SCH (07:52)
[2022-01-15] MEDS: CMCS:Dorzolamide/Timolol OPTH (NF) 10 ML BOT LEFT EYE SCH (07:52)
[2022-01-15 08:52] LABS: Hypochromasia 2+; Microcytosis 1+; Target Cells 2+
[2022-01-15 08:53] LABS: ABS Lymphocytes 0.8 10^3/ul (1.0-4.8); ABS Neutrophils 6.4 10^3/ul (1.5-7.7)
[2022-01-15 08:54] LABS: ABS Eosinophils 0.1 10^3/ul (0-0.6)
[2022-01-15 08:56] VITALS: BP 194/93
[2022-01-15 13:42] LABS: Rapid COVID-19 Molecular Undetected (Undetected)
[2022-01-22 12:09] LABS: Anaplasma phagocytophilum Negative (Negative); B. miyamotoi PCR, B Negative (Negative); Babesia divergens/MO-1 Negative (Negative); Babesia ducani Negative (Negative); Ehrlichia chaffeensis Negative (Negative); Ehrlichia ewingii/canis Negative (Negative); Ehrlichia muris eauclairensis Negative (Negative)
== END 2022-01-15 15:52 | DRG 871 ==
LOC: ED 13:58 → EDHOLD 20:23 → SUATTDRO 20:23 → EDHOLD 01-05 10:06 → MEDTELE 01-05 10:31
PROVIDERS: ADMIT Internal Medicine; ATTEND Hospitalist

== ENCOUNTER 2022-01-24 20:18 | Inpatient (IN) ==
[2022-01-24 22:32] LABS: ABS Basophils 0.1 10^3/ul (0-0.2); ABS Eosinophils 0.3 10^3/ul (0-0.6); ABS Lymphocytes 0.7 10^3/ul (1.0-4.8); ABS Monocytes 0.5 10^3/ul (0-0.8); ABS Neutrophils 4.5 10^3/ul (1.5-7.7); Eosinophil % 5.4 %; Hematocrit 27 % (35-47); Hemoglobin 8.5 g/dL (12.0-16.0); Lymphocyte % 11.9 %; Mean Corpuscular HGB Conc 32 g/dL (31-36); Mean Corpuscular Hemoglobin 22 pg (27-31); Mean Corpuscular Volume 69 fL (80-97); Mean Platelet Volume 8.6 fL (7.4-10.4); Nucleated Red Blood Cells % 0.1; Platelet Count 274 10^3/uL (150-450); Red Blood Count 3.86 10^6 /uL (3.70-4.87); Red Cell Distribution Width 21 % (10-15); White Blood Count 6.1 10^3/uL (3.5-10.8)
[2022-01-24 22:39] LABS: Urine Color Yellow
[2022-01-24 22:40] LABS: Urine Appearance Slightly Cloudy; Urine Bilirubin Negative (Negative); Urine Blood 3+ (Large) (Negative); Urine Glucose Negative (Negative); Urine Ketones Negative (Negative); Urine Nitrite Positive (Negative); Urine Protein 1+ (30 mg/dL) (Negative); Urine Specific Gravity 1.025 (1.005-1.030); Urine Urobilinogen 0.2 (Negative) (Negative); Urine pH 5.5 (5.0-9.0)
[2022-01-24 22:43] LABS: Activated Partial Thrombo Time 33.7 seconds (26.0-38.0); INR 2.03 (0.89-1.11)
[2022-01-24 22:54] LABS: Urine Bacteria 3+ (Absent); Urine Red Blood Cell 3+(>10/hpf) (Absent); Urine Squamous Epithelial Cell Present (Absent); Urine White Blood Cell 3+(>20/hpf) (Absent)
[2022-01-24] MEDS ORDERED: cefTRIAXone 1 gm/50 mL D5W 1 GM/50 ML BAG IV ONE (23:03)
[2022-01-24 23:25] LABS: Albumin 2.5 g/dL (3.2-5.2); Albumin/Globulin Ratio 0.8 (1-3); Calcium 8.9 mg/dL (8.6-10.3); Globulin 3.2 g/dL (2-4); HDL Cholesterol 28.7 mg/dL; Potassium 3.8 mmol/L (3.5-5.0); Total Bilirubin 0.4 mg/dL (0.2-1.0); Total Protein 5.7 g/dL (6.4-8.9); eGFR CKD-EPI 40.3 (>60)
[2022-01-25 01:45] LABS: TSH Ultra Thyroid Stim Horm 1.4 mcIU/mL (0.34-5.60)
[2022-01-25] MEDS: Aspirin EC 81 mg TAB.EC (enteric coated) PO SCH (09:13)
[2022-01-25] MEDS: Metoprolol Succinate XL 200 mg TAB PO SCH (09:13)
[2022-01-25] MEDS: Nystatin TOP POWDER 15 GM BTL TOPICAL SCH ×3 (09:14→21:19)
[2022-01-25] MEDS: RANOLAZINE 500 MG PO SCH ×2 (09:14→21:20)
[2022-01-25] MEDS: CMC: Dorzolamide/Timolol OPTH (NF) 10 ML BOT LEFT EYE SCH ×2 (09:15→21:19)
[2022-01-25] MEDS: CMC:Brimonidine P 0.1%(NF) 1 DROP BTL LEFT EYE SCH ×3 (09:15→21:18)
[2022-01-25] MEDS: LOTEPREDNOL ETABONATE 0.5% LEFT EYE SCH ×3 (09:25→21:20)
[2022-01-25] MEDS ORDERED: Phytonadione Oral Solution 5 MG/25 ML UDC PO ONE (18:06)
[2022-01-25] MEDS: cefTRIAXone 1 gm/50 mL D5W 1 GM/50 ML BAG IV SCH (21:17)
[2022-01-25] MEDS: Latanoprost 0.005% 2.5 ml BTL LEFT EYE SCH (21:18)
[2022-01-26 10:03] LABS: ABS Basophils 0.1 10^3/ul (0-0.2); ABS Eosinophils 0.3 10^3/ul (0-0.6); ABS Lymphocytes 0.6 10^3/ul (1.0-4.8); ABS Monocytes 0.4 10^3/ul (0-0.8); ABS Neutrophils 4.1 10^3/ul (1.5-7.7); Eosinophil % 5.7 %; Hematocrit 29 % (35-47); Hemoglobin 9.2 g/dL (12.0-16.0); Lymphocyte % 11.4 %; Mean Corpuscular HGB Conc 32 g/dL (31-36); Mean Corpuscular Hemoglobin 22 pg (27-31); Mean Corpuscular Volume 69 fL (80-97); Mean Platelet Volume 8.7 fL (7.4-10.4); Nucleated Red Blood Cells % 0.2; Platelet Count 368 10^3/uL (150-450); Red Blood Count 4.16 10^6 /uL (3.70-4.87); Red Cell Distribution Width 22 % (10-15); White Blood Count 5.4 10^3/uL (3.5-10.8)
[2022-01-26 10:09] LABS: INR 1.52 (0.89-1.11)
[2022-01-26 10:38] LABS: Blood Urea Nitrogen 16 mg/dL (6-24); C Reactive Protein 65.05 mg/L (<8.01); CO2 Carbon Dioxide 28 mmol/L (22-32); Calcium 8.6 mg/dL (8.6-10.3); Chloride 99 mmol/L (101-111); Glucose 128 mg/dL (70-100); Sodium 144 mmol/L (135-145); eGFR CKD-EPI 60.6 (>60)
[2022-01-26 10:43] LABS: Anion Gap 17 mmol/L (2-11)
[2022-01-26 11:00] LABS: Hypochromasia 1+; Microcytosis 3+; Target Cells 1+
[2022-01-26 11:01] LABS: Anisocytosis 2+
[2022-01-26] MEDS: RANOLAZINE 500 MG PO SCH ×2 (11:27→19:36)
[2022-01-26] MEDS: Aspirin EC 81 mg TAB.EC (enteric coated) PO SCH (11:27)
[2022-01-26] MEDS: Metoprolol Succinate XL 200 mg TAB PO SCH (11:28)
[2022-01-26] MEDS: Nystatin TOP POWDER 15 GM BTL TOPICAL SCH ×3 (11:29→19:36)
[2022-01-26] MEDS: LOTEPREDNOL ETABONATE 0.5% LEFT EYE SCH ×4 (11:33→19:38)
[2022-01-26] MEDS: CMC:Brimonidine P 0.1%(NF) 1 DROP BTL LEFT EYE SCH ×3 (11:35→19:37)
[2022-01-26] MEDS: CMC: Dorzolamide/Timolol OPTH (NF) 10 ML BOT LEFT EYE SCH ×2 (11:35→19:37)
[2022-01-26] MEDS: cefTRIAXone 1 gm/50 mL D5W 1 GM/50 ML BAG IV SCH (19:36)
[2022-01-26] MEDS: Latanoprost 0.005% 2.5 ml BTL LEFT EYE SCH (19:37)
[2022-01-27] MEDS: Metoprolol Succinate XL 200 mg TAB PO SCH (10:44)
[2022-01-27] MEDS: Aspirin EC 81 mg TAB.EC (enteric coated) PO SCH (10:44)
[2022-01-27] MEDS: Nystatin TOP POWDER 15 GM BTL TOPICAL SCH ×3 (10:47→20:15)
[2022-01-27] MEDS: RANOLAZINE 500 MG PO SCH ×2 (10:50→20:17)
[2022-01-27] MEDS ORDERED: Sulfamethox/Trimethoprim DS TAB 800/160 mg PO SCH (11:00)
[2022-01-27] MEDS: CMC:Brimonidine P 0.1%(NF) 1 DROP BTL LEFT EYE SCH ×3 (12:58→20:15)
[2022-01-27] MEDS: CMC: Dorzolamide/Timolol OPTH (NF) 10 ML BOT LEFT EYE SCH ×2 (12:59→20:15)
[2022-01-27] MEDS: LOTEPREDNOL ETABONATE 0.5% LEFT EYE SCH ×4 (12:59→20:17)
[2022-01-27] MEDS ORDERED: cefTAZidime (*) 1 GM in NS 0.9% 50 ML 50 ML IVPB SCH (18:00)
[2022-01-27] MEDS ORDERED: Cefepime ADVAN 1 GM in NS 0.9% 50 ML 50 ML IVPB SCH (18:00)
[2022-01-27] MEDS: Latanoprost 0.005% 2.5 ml BTL LEFT EYE SCH (20:15)
[2022-01-27] MEDS: Cefepime 1 GM in Dextrose 1 GM/50 ML BAG IV SCH (23:02)
[2022-01-28] MEDS: Cefepime 1 GM in Dextrose 1 GM/50 ML BAG IV SCH ×2 (05:43→18:22)
[2022-01-28] MEDS: Aspirin EC 81 mg TAB.EC (enteric coated) PO SCH (09:54)
[2022-01-28] MEDS: RANOLAZINE 500 MG PO SCH ×2 (09:57→20:49)
[2022-01-28] MEDS: Metoprolol Succinate XL 200 mg TAB PO SCH (09:58)
[2022-01-28] MEDS: CMC: Dorzolamide/Timolol OPTH (NF) 10 ML BOT LEFT EYE SCH ×2 (10:00→20:51)
[2022-01-28] MEDS: CMC:Brimonidine P 0.1%(NF) 1 DROP BTL LEFT EYE SCH ×3 (10:00→20:51)
[2022-01-28] MEDS: LOTEPREDNOL ETABONATE 0.5% LEFT EYE SCH ×4 (10:01→21:30)
[2022-01-28] MEDS: Nystatin TOP POWDER 15 GM BTL TOPICAL SCH ×3 (11:31→21:30)
[2022-01-28 14:26] LABS: ABS Eosinophils 0.3 10^3/ul (0-0.6); ABS Lymphocytes 0.9 10^3/ul (1.0-4.8); ABS Monocytes 0.5 10^3/ul (0-0.8); ABS Neutrophils 3.7 10^3/ul (1.5-7.7); Eosinophil % 5.9 %; Hematocrit 28 % (35-47); Hemoglobin 8.5 g/dL (12.0-16.0); Lymphocyte % 15.8 %; Mean Corpuscular HGB Conc 31 g/dL (31-36); Mean Corpuscular Hemoglobin 21 pg (27-31); Mean Corpuscular Volume 69 fL (80-97); Mean Platelet Volume 8.6 fL (7.4-10.4); Nucleated Red Blood Cells % 0.2; Platelet Count 311 10^3/uL (150-450); Red Blood Count 3.99 10^6 /uL (3.70-4.87); Red Cell Distribution Width 22 % (10-15); White Blood Count 5.5 10^3/uL (3.5-10.8)
[2022-01-28 14:43] LABS: Calcium 8.9 mg/dL (8.6-10.3); Magnesium 1.6 mg/dL (1.9-2.7); Potassium 3.7 mmol/L (3.5-5.0); eGFR CKD-EPI 50.7 (>60)
[2022-01-28] MEDS ORDERED: Magnesium Sulfate 2 gm BAG 2 GM/50 ML BAG IVPB ONE (18:31)
[2022-01-28] MEDS: Latanoprost 0.005% 2.5 ml BTL LEFT EYE SCH (20:51)
[2022-01-29] MEDS: Cefepime 1 GM in Dextrose 1 GM/50 ML BAG IV SCH ×2 (06:04→18:17)
[2022-01-29] MEDS: Nystatin TOP POWDER 15 GM BTL TOPICAL SCH ×3 (09:00→20:40)
[2022-01-29] MEDS: Aspirin EC 81 mg TAB.EC (enteric coated) PO SCH (10:02)
[2022-01-29] MEDS: Magnesium Hydroxide LIQ 30 ML UDC PO PRN ×2 (10:02→13:47)
[2022-01-29] MEDS: RANOLAZINE 500 MG PO SCH ×2 (10:02→20:40)
[2022-01-29] MEDS: Metoprolol Succinate XL 200 mg TAB PO SCH (10:03)
[2022-01-29] MEDS: CMC:Brimonidine P 0.1%(NF) 1 DROP BTL LEFT EYE SCH ×3 (10:08→20:40)
[2022-01-29] MEDS: CMC: Dorzolamide/Timolol OPTH (NF) 10 ML BOT LEFT EYE SCH ×2 (10:08→20:41)
[2022-01-29] MEDS: LOTEPREDNOL 0.5% LEFT EYE SCH ×4 (10:09→20:41)
[2022-01-29 16:52] LABS: Hematocrit 27 % (35-47); Hemoglobin 8.7 g/dL (12.0-16.0); Mean Corpuscular HGB Conc 32 g/dL (31-36); Mean Corpuscular Hemoglobin 22 pg (27-31); Mean Corpuscular Volume 68 fL (80-97); Mean Platelet Volume 8.4 fL (7.4-10.4); Platelet Count 340 10^3/uL (150-450); Red Blood Count 3.99 10^6 /uL (3.70-4.87); Red Cell Distribution Width 22 % (10-15); White Blood Count 5.9 10^3/uL (3.5-10.8)
[2022-01-29 17:03] LABS: Phosphorus 3.2 mg/dL (2.5-5.0); eGFR CKD-EPI 53.7 (>60)
[2022-01-29 17:45] LABS: ABS Basophils 0.1 10^3/ul (0-0.2); ABS Eosinophils 0.3 10^3/ul (0-0.6); ABS Lymphocytes 0.6 10^3/ul (1.0-4.8); ABS Monocytes 0.6 10^3/ul (0-0.8); ABS Neutrophils 4.3 10^3/ul (1.5-7.7); Eosinophil % 5.1 %; Lymphocyte % 10.6 %; Nucleated Red Blood Cells % 0.2
[2022-01-29 18:28] LABS: Urine Bacteria 1+ (Absent); Urine Granular Casts Present (Absent); Urine Red Blood Cell 2+(6-10/hpf) (Absent); Urine Squamous Epithelial Cell Present (Absent); Urine White Blood Cell 3+(>20/hpf) (Absent); Urine Yeast Present (Absent)
[2022-01-29 18:29] LABS: Urine Appearance Clear; Urine Bilirubin Negative (Negative); Urine Blood Trace (Intact) (Negative); Urine Color Yellow; Urine Glucose Negative (Negative); Urine Ketones Negative (Negative); Urine Specific Gravity 1.018 (1.002-1.030)
[2022-01-29 18:30] LABS: Urine Nitrite Negative (Negative); Urine Protein 1+ (30 mg/dL) (Negative); Urine Urobilinogen 0.2 (Negative) (Negative); Urine pH 5.5 (5.0-9.0)
[2022-01-29] MEDS: Latanoprost 0.005% 2.5 ml BTL LEFT EYE SCH (20:41)
[2022-01-30] MEDS: Cefepime 1 GM in Dextrose 1 GM/50 ML BAG IV SCH ×2 (06:29→20:25)
[2022-01-30] MEDS: RANOLAZINE 500 MG PO SCH ×2 (09:02→20:25)
[2022-01-30] MEDS: Aspirin EC 81 mg TAB.EC (enteric coated) PO SCH (09:03)
[2022-01-30] MEDS: Metoprolol Succinate XL 200 mg TAB PO SCH (09:03)
[2022-01-30] MEDS: CMC:Brimonidine P 0.1%(NF) 1 DROP BTL LEFT EYE SCH ×3 (09:04→20:27)
[2022-01-30] MEDS: CMC: Dorzolamide/Timolol OPTH (NF) 10 ML BOT LEFT EYE SCH ×2 (09:05→20:26)
[2022-01-30] MEDS: LOTEPREDNOL 0.5% LEFT EYE SCH ×4 (09:06→20:38)
[2022-01-30] MEDS: Nystatin TOP POWDER 15 GM BTL TOPICAL SCH ×3 (09:06→20:38)
[2022-01-30] MEDS: Latanoprost 0.005% 2.5 ml BTL LEFT EYE SCH (20:26)
[2022-01-31] MEDS: Cefepime 1 GM in Dextrose 1 GM/50 ML BAG IV SCH ×2 (05:11→17:37)
[2022-01-31] MEDS: Magnesium Hydroxide LIQ 30 ML UDC PO PRN (08:31)
[2022-01-31] MEDS: Metoprolol Succinate XL 200 mg TAB PO SCH (08:31)
[2022-01-31] MEDS: Aspirin EC 81 mg TAB.EC (enteric coated) PO SCH (08:32)
[2022-01-31] MEDS: RANOLAZINE 500 MG PO SCH ×2 (08:32→21:44)
[2022-01-31] MEDS: CMC:Brimonidine P 0.1%(NF) 1 DROP BTL LEFT EYE SCH ×3 (08:33→21:41)
[2022-01-31] MEDS: CMC: Dorzolamide/Timolol OPTH (NF) 10 ML BOT LEFT EYE SCH ×2 (08:34→21:40)
[2022-01-31] MEDS: LOTEPREDNOL 0.5% LEFT EYE SCH ×4 (08:38→21:44)
[2022-01-31] MEDS: Nystatin TOP POWDER 15 GM BTL TOPICAL SCH ×3 (14:09→21:44)
[2022-01-31] MEDS: Latanoprost 0.005% 2.5 ml BTL LEFT EYE SCH (21:40)
[2022-02-01] MEDS: Cefepime 1 GM in Dextrose 1 GM/50 ML BAG IV SCH (05:38)
[2022-02-01 07:01] LABS: Calcium 9.2 mg/dL (8.6-10.3); Magnesium 1.9 mg/dL (1.9-2.7); Phosphorus 3.4 mg/dL (2.5-5.0); Potassium 4.5 mmol/L (3.5-5.0); eGFR CKD-EPI 51.9 (>60)
[2022-02-01 07:05] LABS: ABS Basophils 0.1 10^3/ul (0-0.2); ABS Eosinophils 0.3 10^3/ul (0-0.6); ABS Monocytes 0.7 10^3/ul (0-0.8); ABS Neutrophils 7.1 10^3/ul (1.5-7.7); Hematocrit 28 % (35-47); Hemoglobin 8.9 g/dL (12.0-16.0); Lymphocyte % 19.6 %; Mean Corpuscular HGB Conc 32 g/dL (31-36); Mean Corpuscular Hemoglobin 22 pg (27-31); Mean Corpuscular Volume 68 fL (80-97); Mean Platelet Volume 8.7 fL (7.4-10.4); Nucleated Red Blood Cells % 0.2; Platelet Count 353 10^3/uL (150-450); Red Blood Count 4.06 10^6 /uL (3.70-4.87); Red Cell Distribution Width 22 % (10-15); White Blood Count 10.1 10^3/uL (3.5-10.8)
[2022-02-01] MEDS: Magnesium Hydroxide LIQ 30 ML UDC PO PRN (09:34)
[2022-02-01] MEDS: CMC:Brimonidine P 0.1%(NF) 1 DROP BTL LEFT EYE SCH (09:40)
[2022-02-01] MEDS: CMC: Dorzolamide/Timolol OPTH (NF) 10 ML BOT LEFT EYE SCH (09:40)
[2022-02-01] MEDS: LOTEPREDNOL 0.5% LEFT EYE SCH (09:41)
[2022-02-01] MEDS: Aspirin EC 81 mg TAB.EC (enteric coated) PO SCH (09:44)
[2022-02-01] MEDS: RANOLAZINE 500 MG PO SCH (10:07)
[2022-02-01] MEDS: Metoprolol Succinate XL 200 mg TAB PO SCH (10:07)
[2022-02-01] MEDS: Nystatin TOP POWDER 15 GM BTL TOPICAL SCH (11:21)
[2022-02-01 11:59] VITALS: BP 130/64
== END 2022-02-01 14:12 | DRG 69 ==
LOC: ED 20:18 → SUATTDRO 01-25 00:22 → EDHOLD 01-25 00:22 → MEDTELE 01-25 13:12
PROVIDERS: ADMIT Internal Medicine; ATTEND Internal Medicine